=== PATIENT | female | born 1960 | race Caucasian/White ===

== ENCOUNTER 2017-12-05 05:35 | Day surgery (SDC) | payer BC ==
[~2017-12-05] VITALS: Ht 162.6 cm; Wt 74.4 kg
[2017-12-05] MEDS ORDERED: CEFAZOLIN 1 GM IVPB PREMIX 50 ML IV ONE (07:00)
[2017-12-05] MEDS ORDERED: MIDAZOLAM HCL 5 MG/5 ML VIAL IVP ONE (07:15)
[2017-12-05] MEDS ORDERED: SEVOFLURANE 15 MIN GAS INH ONE (07:15)
[2017-12-05] MEDS ORDERED: ROCURONIUM BROMIDE 10 MG/ML (ZEMURON) IV ONE (07:15)
[2017-12-05] MEDS ORDERED: DEXAMETHASONE SOD PHOSPHATE 4 MG/ML VIAL IVP ONE (07:15)
[2017-12-05] MEDS ORDERED: NS 1000 ML IV.SOLN IV ONE (07:15)
[2017-12-05] MEDS ORDERED: ONDANSETRON HCL 4 MG/2 ML VIAL IVP ONE (07:15)
[2017-12-05] MEDS ORDERED: LR 1,000 ML IV.SOLN IV ONE (07:15)
[2017-12-05] MEDS ORDERED: PROPOFOL 200MG/ 20ML VIAL (DIPRIVAN) IV ONE (07:15)
[2017-12-05] MEDS ORDERED: KETOROLAC TROMETHAMINE 30 MG VIAL IVP ONE (07:15)
[2017-12-05] MEDS ORDERED: fentaNYL CITRATE 250 MCG/5 ML AMP IV ONE (07:15)
[2017-12-05] MEDS ORDERED: NS IRRIG SOLN 1000 ML IR ONE (07:15)
[2017-12-05] MEDS ORDERED: LR 1,000 ML IV SCH (08:16)
[2017-12-05] MEDS ORDERED: MEPERIDINE HCL/PF 25 MG/ML DISP.SYRIN IVP PRN (08:30)
[2017-12-05] MEDS ORDERED: HYDROmorphone 1 MG INJ. 1 MG/ML AMPUL IVP PRN (08:30)
[2017-12-05] MEDS ORDERED: HYDROmorphone 2 MG/ML VIAL IVP PRN ×2 (08:30)
[2017-12-05] MEDS ORDERED: OXYCODONE/ACETAMINOPHEN 5-325 TABLET PO PRN ×2 (09:45→11:30)
[2017-12-05 10:46] VITALS: BP_SYST 115
[2017-12-05] MEDS ORDERED: IBUPROFEN 800 MG TABLET PO PRN (11:00)
== END 2017-12-05 12:30 | disposition home or self-care (01) ==
LOC: SMU 05:35 → SDS 05:35
PROVIDERS: ATTEND Obstetrics & Gynecology
DX: N81.6 Rectocele (principal); H40.003 Preglaucoma, unspecified, bilateral; E78.5 Hyperlipidemia, unspecified; Z98.890 Other specified postprocedural states; Z82.49 Family history of ischemic heart disease and other diseases of the circulatory system; Z83.49 Family history of other endocrine, nutritional and metabolic diseases; Z83.3 Family history of diabetes mellitus; Z87.891 Personal history of nicotine dependence; E66.9 Obesity, unspecified
CPT/HCPCS: 45560; 88305; J0690; J1100; J1885; J2250; J2405; J2704; J3010; J7030; J7120